=== PATIENT | female | born 2000 | race Caucasian/White ===

== ENCOUNTER 2024-02-05 16:39 | Inpatient (IN) ==
[2024-02-06] MEDS ORDERED: CALCIUM CARBONATE 500 MG CHEWABLE TAB PO PRN (16:54)
[2024-02-06] MEDS ORDERED: ACETAMINOPHEN 325 MG TAB PO PRN (16:54)
[2024-02-06] MEDS ORDERED: OXYTOCIN 30 UNITS/NSS 30 UNITS/500 ML BAG IV PRN (16:54)
[2024-02-06] MEDS ORDERED: LIDOCAINE 1% LOCAL 20 ML VIAL INFIL PRN (16:54)
[2024-02-06 17:32] LABS: Hematocrit (blood only) 38.3 % (37.0-47.0); Hemoglobin 12.5 g/dl (12.0-16.0); Mean Corpuscular Hemoglobin 26.7 pg (25.0-34.0); Mean Corpuscular Hgb Conc 32.6 g/dL (32.0-36.0); Mean Corpuscular Volume 81.7 fL (80.0-100.0); Mean Platelet Volume 11.5 fL (9.4-12.4); Platelet Count 175 K/uL (130-400); RDW Coefficient of Variation 14.7 % (11.5-14.5); RDW Standard Deviation 43.6 fL (36.4-46.3); Red Blood Count 4.69 M/uL (4.20-5.40); White Blood Count 10.34 K/ul (4.8-10.8)
[2024-02-06] MEDS: LACTATED RINGER'S 1,000 ML IV PRN (17:54)
--- NOTE | 2024-02-06 18:12 | History & Physical Report ---
Date of Service February 06, 2024 Assessment & Plan (1) Supervision of normal intrauterine in primigravida: Plan: 23 yo G1 at 40 6/7 wga presents for IOL VSS Fetus cat 1 Labor - 35cc fox placed, pt tolerated well. Will start pit GBS neg epidural prn Admission and Anticipated Discharge Date Admission Date: February 06, 2024 History of Present Illness Primary Care Provider: NO PCP 23 yo G1 at 40 6/7 wga presents for iol. 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 10/2023 neg cyto denies hx stis Allergies Allergy/AdvReac Type Severity Reaction Status Date / Time No Known Allergies Allergy Verified 02/04/24 11:55 Home Medications Medication Instructions Recorded Confirmed Type vit 168-iron 27 mg-folic 27 cap PO DAILY 09/26/23 02/06/24 History acid 800 mcg-omega3 235 mg capsule (One-A-Day -1) Patient History Medical History (Updated 02/06/24 @ 17:24 by Paola Olson, RN) No known health problems Surgical History (Updated 02/06/24 @ 17:24 by Paola Olson, RN) No history of previous surgery Social History (Updated 02/06/24 @ 17:24 by Paola Olson, RN) Smoking Status: Never smoker Do You Dip or Chew Tobacco: No; Hx Alcohol Use: No Hx Substance Use: No Preferred Language: Armenian Communication Ability: Effective 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 digital project manager at [employer] Other Information That Helps Us Care for You: No Feels Safe at Home: Yes Safety Concerns: Feels Safe At This Time Physical Exam Genitourinary: Manual OB Exam: + cervical dilation 1 cm, + cervical effacement 70% and + station -2 OB Exam Monitor Tracing: + external FHT monitor used, + external uterine monitor used and + category I Results & Data Vital Signs (Past 12 Hours) Vital Signs Temp Pulse Resp BP 02/06/24 17:25 98.2 F 18 02/06/24 17:12 81 124/75 Laboratory Results OB Labs: Blood Type A Positive 11/01/23 Antibody Screen NEGATIVE 11/01/23 Hemoglobin 11.6 g/dl (12.0-16.0) L 11/01/23 Hematocrit 36.2 % (37.0-47.0) L 11/01/23 Mean Corpuscular Volume 86.2 fL (80.0-100.0) 11/01/23 Platelet Count 297 K/uL (130-400) 11/01/23 Rubella IgG Antibody Immune (Immune) 11/01/23 Rapid Plasma Reagin Nonreactive (Nonreactive) 11/01/23 Hepatitis B Surface Antigen. NON-REACTIVE (NON-REACTIVE) 11/01/23 Hepatitis C Antibody (EIA) NON-REACTIVE (NON-REACTIVE) 11/01/23 HIV (1&2) Ag and Ab Confirmation NON-REACTIVE (NON-REACTIVE) 11/01/23 Glucose 1 Hour 50 gm Load 126 mg/dl (70-130) 11/04/23 OB Optional Labs: Chlamydia trachomatis RNA Not Detected (NotDetected) 10/04/23 Neisseria gonorrhoeae RNA Not Detected (NotDetected) 10/04/23 Coding Level of Care Code None Diagnoses Supervision of normal intrauterine in primigravida Z34.00
[2024-02-06] MEDS: OXYTOCIN 30 UNITS/NSS 30 UNITS/500 ML BAG IV PRN (19:14)
--- NOTE | 2024-02-07 02:14 | Labor Progress Brief Note ---
Date of Service February 07, 2024 Subjective ok for check Assessment & Plan (1) Supervision of normal intrauterine in primigravida: Plan: 23 yo G1 at 40 6/7 wga presents for IOL VSS Fetus cat 1 Labor - good progress, now s/p arom. Continue induction GBS neg epidural prn Admission and Anticipated Discharge Date Admission Date: February 06, 2024 Physical Exam Genitourinary: Manual OB Exam: + cervical dilation 4 cm, + cervical effacement 70%, + station -2 and + amniotic fluid (arom clear) OB Exam Monitor Tracing: + external FHT monitor used, + external uterine monitor used (q3) and + category I (145/mod/+accel/-decel) Results & Data Vital Signs (Past 12 Hours) Vital Signs Temp Pulse Resp BP 02/07/24 02:00 80 132/60 02/07/24 01:02 98 H 131/71 02/07/24 00:06 18 02/07/24 00:06 98.2 F 18 02/07/24 00:00 80 109/56 L 02/06/24 23:01 80 02/06/24 23:01 125/67 02/06/24 22:49 18 02/06/24 22:49 98.8 F 18 02/06/24 22:00 81 02/06/24 22:00 124/70 02/06/24 21:00 89 02/06/24 21:00 131/69 02/06/24 20:00 18 02/06/24 20:00 18 02/06/24 20:00 96 H 02/06/24 20:00 130/76 02/06/24 19:03 86 02/06/24 19:03 129/74 02/06/24 19:01 98.2 F 18 02/06/24 19:00 18 02/06/24 19:00 18 02/06/24 18:30 20 02/06/24 18:30 20 02/06/24 18:00 20 02/06/24 18:00 20 02/06/24 17:25 98.2 F 18 02/06/24 17:12 81 124/75 Coding Level of Care Code None Diagnoses Supervision of normal intrauterine in primigravida Z34.00
--- NOTE | 2024-02-07 07:31 | Labor Progress Brief Note ---
Date of Service February 07, 2024 Subjective ok for check Assessment & Plan (1) Supervision of normal intrauterine in primigravida: Plan: 23 yo G1 at 40 wga presents for IOL VSS Fetus cat 1 Labor - progress noted, will increae pit max to 24 GBS neg epidural prn Admission and Anticipated Discharge Date Admission Date: February 06, 2024 Physical Exam Genitourinary: Manual OB Exam: + cervical dilation 5 cm, + cervical effacement 70% and + station -2 OB Exam Monitor Tracing: + external FHT monitor used, + external uterine monitor used (q3) and + category I (140/mod/+accel/-decel) Results & Data Vital Signs (Past 12 Hours) Vital Signs Temp Pulse Resp BP 02/07/24 07:03 83 122/67 02/07/24 06:01 73 115/67 02/07/24 06:00 18 02/07/24 06:00 98.6 F 18 02/07/24 05:01 88 119/67 02/07/24 04:08 18 02/07/24 04:08 98.2 F 18 02/07/24 04:01 77 130/80 02/07/24 03:01 85 118/59 L 02/07/24 02:11 16 02/07/24 02:11 98.1 F 16 02/07/24 02:00 80 132/60 02/07/24 01:02 98 H 131/71 02/07/24 00:06 18 02/07/24 00:06 98.2 F 18 02/07/24 00:00 80 109/56 L 02/06/24 23:01 80 02/06/24 23:01 125/67 02/06/24 22:49 18 02/06/24 22:49 98.8 F 18 02/06/24 22:00 81 02/06/24 22:00 124/70 02/06/24 21:00 89 02/06/24 21:00 131/69 02/06/24 20:00 18 02/06/24 20:00 18 02/06/24 20:00 96 H 02/06/24 20:00 130/76 Coding Level of Care Code None Diagnoses Supervision of normal intrauterine in primigravida Z34.00
[2024-02-07] MEDS: fentANYL 2 MCG/ML BUPIVacaine 0.125%-NSS 100ML BAG ONE (08:30)
[2024-02-07] MEDS: BUPIVACAINE 0.25% PF 30 ML VIAL ONE (08:30)
[2024-02-07] MEDS: LIDOCAINE 2%/EPINEPHRINE 1:200,000 20 ML PF ONE (08:33)
--- NOTE | 2024-02-07 08:44 | Anesthesiology Consultation ---
Date of Service February 07, 2024 Assessment & Plan Chart Review Chart Review: Acceptable Risk for Labor Epidural Consults Requested none History Height/Weight Height: 5 ft 1 in Weight: 76.204 kg Allergies Allergy/AdvReac Type Severity Reaction Status Date / Time No Known Allergies Allergy Verified 02/04/24 11:55 Medications Home Medications Medication Instructions Recorded Confirmed Last Taken vit 168-iron 27 mg-folic 27 cap PO DAILY 09/26/23 02/06/24 02/05/24 acid 800 mcg-omega3 235 mg capsule (One-A-Day -1) Active Medications Generic Name Dose Route Start Last Admin Trade Name Freq PRN Reason Stop Dose Admin Oxytocin 30 units in 500 mls @ 18 mls/hr 02/06/24 16:54 02/07/24 04:00 Pitocin 30 Units/Nss IV 02/08/24 16:53 1.08 units/hr .Q24H PRN 18 mls/hr Labor Induction/Augmentation Titration Protocol 1.08 UNITS/HR Lactated Ringer's 1,000 mls @ 125 mls/hr 02/06/24 16:54 02/07/24 08:04 Lr IV 02/08/24 16:53 125 mls/hr .Q8H PRN Administration L&D Protocol Protocol Past Medical History Medical History (Updated 02/06/24 @ 17:24 by Paola Olson RN) No known health problems Past Surgical History Surgical History (Updated 02/06/24 @ 17:24 by Paola Olson RN) No history of previous surgery Social History Smoking Status: Never smoker Do You Dip or Chew Tobacco: No Hx Alcohol Use: No Hx Substance Use: No Physical Exam Vital Signs Last Vital Signs Temp 36.9 C 02/07/24 07:30 Pulse 97 H 02/07/24 08:42 Resp 20 02/07/24 07:30 BP 115/60 02/07/24 08:40 Pulse Ox 96 02/07/24 08:42 Testing Laboratory Results 02/06/24 17:03
[2024-02-07] MEDS ORDERED: NALOXONE HCL 1 MG in SODIUM CHLORIDE 0.9% 1,000 ML IV PRN (08:46)
[2024-02-07] MEDS ORDERED: ROPIVACAINE 0.5% PF 5 MG/ML 20 ML VIAL EPI PRN (08:46)
[2024-02-07] MEDS ORDERED: NALOXONE HCL 0.4 MG/1 ML VIAL/CARP IV PRN (08:46)
[2024-02-07] MEDS ORDERED: ePHEDrine sulfate 50 MG/ML AMP IV PRN (08:46)
[2024-02-07] MEDS ORDERED: fentaNYL citrate PF 100 MCG/2 ML VIAL EPI PRN (08:46)
[2024-02-07] MEDS ORDERED: SODIUM CHLORIDE 0.9% PF INJ 10 ML VIAL EPI PRN (08:46)
[2024-02-07] MEDS ORDERED: LIDOCAINE 2% MPF LOCAL 5 ML VIAL EPI PRN (08:46)
[2024-02-07] MEDS ORDERED: NALBUPHINE HCL 5 MG in SYRINGE 0 ML IV PRN (08:46)
[2024-02-07] MEDS ORDERED: BUPIVACAINE 0.25% PF 30 ML VIAL EPI PRN (08:46)
[2024-02-07] MEDS: SODIUM CHLORIDE 0.9% PF INJ 10 ML VIAL ONE (08:59)
[2024-02-07] MEDS: fentaNYL citrate PF 100 MCG/2 ML VIAL ONE (08:59)
[2024-02-07] MEDS: SODIUM CHLORIDE 0.9% PF INJ 10 ML VIAL EPI STA (10:24)
[2024-02-07] MEDS: LIDOCAINE 2%/EPINEPHRINE 1:200,000 20 ML PF EPI STA (10:24)
[2024-02-07] MEDS: fentaNYL citrate PF 100 MCG/2 ML VIAL EPI STA (10:24)
[2024-02-07] MEDS: BUPIVACAINE 0.25% PF 30 ML VIAL EPI STA (10:24)
[2024-02-07] MEDS: diphenhydrAMINE 50 MG/ML VIAL IV PRN (15:43)
[2024-02-07] MEDS: fentANYL 2 MCG/ML BUPIVacaine 0.125%-NSS 100ML BAG EPI PRN (15:49)
[2024-02-07] MEDS: ePHEDrine sulfate 50 MG/ML AMP ONE (20:19)
--- NOTE | 2024-02-08 03:46 | Labor Progress Brief Note ---
Date of Service February 08, 2024 Subjective Reason For Note: Change In Status patient has been pushing effectively for 3 hours but no longer making significant progress. after patient's consent and after straight cath for about 50cc of urine- vaccuum with Kiwi device applied to vertex but after 3 pop-offs through 3 contractions there is no descent of caput. FHT's have been reassuring throught out the labor process. because of arrest of descent and failed vaccuum attempt, we will proceed with primary LTCS after discussing with the patient and partner. they are agreeable to proceeding with LTCS. all questions are answered to their satisfaction. Assessment & Plan Admission and Anticipated Discharge Date Admission Date: February 06, 2024 Results & Data Vital Signs (Past 12 Hours) Vital Signs Temp Pulse Resp BP Pulse Ox 02/08/24 03:37 102 H 97 02/08/24 03:32 92 H 96 02/08/24 03:27 106 H 95 02/08/24 03:22 96 H 97 02/08/24 03:17 103 H 96 02/08/24 03:12 99 H 97 02/08/24 03:07 116 H 96 02/08/24 03:02 91 H 95 02/08/24 02:57 107 H 96 02/08/24 02:52 99 H 95 02/08/24 02:47 93 H 95 02/08/24 02:42 97 H 96 02/08/24 02:37 89 96 02/08/24 02:32 94 H 95 02/08/24 02:27 97 H 95 02/08/24 02:22 109 H 96 02/08/24 02:17 90 95 02/08/24 02:12 98 H 97 02/08/24 02:07 82 97 02/08/24 02:04 89 124/60 02/08/24 02:02 105 H 96 02/08/24 01:57 96 H 97 02/08/24 01:52 97 H 96 02/08/24 01:47 91 H 97 02/08/24 01:42 90 97 02/08/24 01:37 105 H 97 02/08/24 01:36 18 02/08/24 01:36 98.8 F 18 02/08/24 01:32 102 H 97 02/08/24 01:27 96 H 97 02/08/24 01:22 100 H 97 02/08/24 01:17 101 H 97 02/08/24 01:12 95 H 97 02/08/24 01:07 95 H 97 02/08/24 01:02 114 H 98 02/08/24 00:57 100 H 97 02/08/24 00:52 107 H 97 02/08/24 00:47 110 H 96 02/08/24 00:42 111 H 96 02/08/24 00:37 100 H 96 02/08/24 00:32 100 H 94 02/08/24 00:27 102 H 97 02/08/24 00:22 96 H 95 02/08/24 00:17 96 H 98 02/08/24 00:12 93 H 100 02/08/24 00:07 97 H 98 02/08/24 00:02 106 H 97 02/07/24 23:57 99 H 98 02/07/24 23:52 98 H 99 02/07/24 23:47 107 H 99 02/07/24 23:42 110 H 100 02/07/24 23:39 109 H 115/57 L 02/07/24 23:38 16 02/07/24 23:38 99.3 F 16 02/07/24 23:37 114 H 99 02/07/24 23:31 119 H 98 02/07/24 23:26 119 H 100 02/07/24 23:21 112 H 99 02/07/24 23:16 117 H 100 02/07/24 23:11 116 H 98 02/07/24 23:06 109 H 99 02/07/24 23:01 116 H 99 02/07/24 22:38 120 H 100 02/07/24 22:33 105 H 100 02/07/24 22:28 118 H 99 02/07/24 22:27 146 H 135/64 02/07/24 22:23 114 H 100 02/07/24 22:18 113 H 100 02/07/24 22:13 108 H 100 02/07/24 22:08 127 H 100 02/07/24 22:06 112 H 80 L 02/07/24 22:03 109 H 99 02/07/24 22:01 107 H 84 L 02/07/24 21:58 100 02/07/24 21:58 115 H 05/03/24 21:58 109 H 121/79 05/03/24 21:53 110 H 100 02/07/24 21:41 103 H 122/73 02/07/24 21:28 118 H 123/77 02/07/24 21:12 118 H 131/60 02/07/24 20:57 114 H 156/72 H 02/07/24 20:41 115 H 121/65 02/07/24 20:27 116 H 120/65 02/07/24 20:11 103 H 120/62 02/07/24 19:56 100 H 111/58 L 02/07/24 19:52 104 H 100 02/07/24 19:47 104 H 100 02/07/24 19:42 108 H 100 02/07/24 19:41 104 H 110/59 L 02/07/24 19:37 97 H 100 02/07/24 19:32 107 H 100 02/07/24 19:27 101 H 100 02/07/24 19:26 96 H 114/58 L 02/07/24 19:22 104 H 100 02/07/24 19:17 109 H 99 02/07/24 19:12 103 H 99 02/07/24 19:11 105 H 108/54 L 02/07/24 19:07 105 H 99 02/07/24 19:05 16 02/07/24 19:05 99.0 F 16 02/07/24 19:02 114 H 99 02/07/24 19:00 18 02/07/24 19:00 18 02/07/24 18:58 103 H 105/51 L 02/07/24 18:57 103 H 98 02/07/24 18:52 103 H 99 02/07/24 18:47 104 H 99 02/07/24 18:43 103 H 106/54 L 02/07/24 18:42 103 H 99 02/07/24 18:37 97 H 97 02/07/24 18:32 97 H 98 02/07/24 18:30 20 02/07/24 18:30 20 02/07/24 18:28 97 H 101/52 L 02/07/24 18:27 98 H 98 02/07/24 18:22 91 H 99 02/07/24 18:17 99 H 98 02/07/24 18:13 100 H 108/57 L 02/07/24 18:12 99 H 100 02/07/24 18:07 105 H 100 02/07/24 18:02 109 H 99 02/07/24 18:00 20 02/07/24 18:00 20 02/07/24 17:57 109 H 100 02/07/24 17:56 104 H 116/56 L 02/07/24 17:52 109 H 100 02/07/24 17:47 116 H 100 02/07/24 17:43 105 H 107/67 02/07/24 17:42 104 H 100 02/07/24 17:37 94 H 100 02/07/24 17:32 111 H 100 02/07/24 17:30 20 02/07/24 17:30 20 02/07/24 17:28 108 H 106/62 02/07/24 17:27 110 H 100 02/07/24 17:22 106 H 100 02/07/24 17:17 109 H 96 02/07/24 17:12 111 H 98 02/07/24 17:11 116 H 102/51 L 02/07/24 17:07 100 H 98 02/07/24 17:02 100 H 95 02/07/24 17:00 20 02/07/24 17:00 98.2 F 20 02/07/24 16:57 100 H 94 02/07/24 16:56 94 H 108/58 L 02/07/24 16:52 99 H 95 02/07/24 16:47 98 H 95 02/07/24 16:42 101 H 95 02/07/24 16:41 93 H 106/55 L 02/07/24 16:37 99 H 94 02/07/24 16:32 97 H 94 02/07/24 16:30 18 02/07/24 16:30 18 02/07/24 16:27 100 H 95 02/07/24 16:26 103 H 103/59 L 02/07/24 16:22 93 H 95 02/07/24 16:17 97 H 96 02/07/24 16:12 93 H 96 02/07/24 16:11 92 H 102/56 L 02/07/24 16:07 87 96 02/07/24 16:02 92 H 97 02/07/24 16:00 20 02/07/24 16:00 20 02/07/24 15:57 90 98 02/07/24 15:56 91 H 107/61 02/07/24 15:52 86 98 02/07/24 15:47 100 H 100 Coding Level of Care Code 30614 SUB INP/OBS CARE
[2024-02-08] MEDS ORDERED: SODIUM CHLORIDE 0.9% 250 ML IV PRN (03:47)
[2024-02-08] MEDS ORDERED: MoRPHine SULFATE PF 1 MG/ML 10 ML AMP/VIAL ONE (03:56)
[2024-02-08] MEDS ORDERED: ceFAZolin 2000MG 2,000 MG/15 ML SYR IV STA (04:20)
[2024-02-08] MEDS: CITRIC ACID/SODIUM CITRATE 15 ML UDC PO STA (04:25)
[2024-02-08] MEDS ORDERED: LIDOCAINE 2%/EPINEPHRINE 1:200,000 20 ML PF ONE (05:15)
[2024-02-08] MEDS ORDERED: PHENYLEPHRINE 100MCG/ML 10ML SYR IV ONE (05:15)
[2024-02-08] MEDS ORDERED: OXYTOCIN 10 UNITS/ML VIAL ONE ×4 (05:16)
[2024-02-08] MEDS ORDERED: NALOXONE HCL 0.08 MG in SYRINGE 1.8 ML IV PRN (05:33)
[2024-02-08] MEDS ORDERED: MoRPHine SULFATE PF 1 MG/ML 10 ML AMP/VIAL INT SPINAL ONE (05:33)
[2024-02-08] MEDS ORDERED: ONDANSETRON INJ 2 MG/ML 2 ML VIAL IV PRN ×2 (05:33→06:31)
[2024-02-08] MEDS ORDERED: ePHEDrine sulfate 50 MG/ML AMP IV PRN ×2 (05:33→07:21)
[2024-02-08] MEDS ORDERED: MEPERIDINE HCL 25 MG/ML CARP/VIAL IV PRN (05:33)
[2024-02-08] MEDS ORDERED: HYDROmorphone INJ 0.5 MG/0.5 ML SYR IV PRN (05:33)
[2024-02-08] MEDS ORDERED: LACTATED RINGER'S 500 ML IV PRN (05:33)
[2024-02-08] MEDS ORDERED: NALBUPHINE HCL 5 MG in SYRINGE 0 ML IV PRN ×2 (05:33→07:21)
[2024-02-08] MEDS ORDERED: NALOXONE HCL 1 MG in SODIUM CHLORIDE 0.9% 1,000 ML IV PRN ×2 (05:33→07:21)
[2024-02-08] MEDS ORDERED: MoRPHine SULFATE 2 MG/ML CARP IV PRN (05:33)
[2024-02-08] MEDS ORDERED: ACETAMINOPHEN 1,000 MG/100 ML VIAL IV PRN (05:33)
[2024-02-08] MEDS ORDERED: diphenhydrAMINE 50 MG/ML VIAL IV PRN ×3 (05:33→23:33)
[2024-02-08] MEDS ORDERED: NALOXONE HCL 0.4 MG/1 ML VIAL/CARP IV PRN ×2 (05:33→07:21)
[2024-02-08] MEDS ORDERED: PROMETHAZINE HCL 6.25 MG in SODIUM CHLORIDE 0.9% 50 ML IV PRN (05:33)
[2024-02-08] MEDS ORDERED: SODIUM CHLORIDE 0.9% 1,000 ML IV SCH (05:45)
[2024-02-08] MEDS ORDERED: DC INTRASPINAL MORPHINE SCH (05:45)
[2024-02-08] MEDS ORDERED: ONDANSETRON INJ 2 MG/ML 2 ML VIAL ONE (05:45)
[2024-02-08] MEDS ORDERED: NO NARCOTICS OR SEDATIVES SCH (05:45)
--- NOTE | 2024-02-08 06:17 | Post Operative Brief Note ---
PG Immediate Post Op with CF Date of Surgery February 08, 2024 Pre & Post Diagnosis Operation Date: 02/08/24 04:00 Pre-Op Diagnosis: 1. Post dates induction 2. Failure to descend 3. Failed vacuum x3 Post-Op Diagnosis: Same as preop I identified the patient and participated in the time-out.: Yes Procedure Operation Date: 02/08/24 04:00 Actual Procedures p low transverse section with cephalad T-extension of uterine incision in LD - Mayuri Schulte MD, FACOG Surgeon Mayuri Schulte MD, FACOG Administration Manager Kaylynn Olguin RN Estimated Blood Loss [phone] Findings Consistent with Post-Op Diagnosis gravid uterus - normal tubes and ovaries in ROP presentation restituted to direct OP Specimens Specimen Description: 1. Placenta (hold) 2. Cord Blood Drains [place]bron Catheter (Anesthesia to monitor during proceedure) Anesthesia Type Labor Epidural Complications none Disposition Accompanied Patient To Recovery: Yes Disposition: L&D
[2024-02-08] MEDS ORDERED: HYDROCORTISONE ACETATE 25 MG SUPP PR PRN (06:31)
[2024-02-08] MEDS ORDERED: BENZOCAINE 20% SPRY 85 APPLN/85 GM CAN EXT PRN (06:31)
[2024-02-08] MEDS ORDERED: MAGNESIUM HYDROXIDE SUSP 30 ML UDC PO PRN (06:31)
[2024-02-08] MEDS ORDERED: SENNA 8.6 MG TAB PO PRN (06:31)
[2024-02-08] MEDS ORDERED: IBUPROFEN 600 MG TAB PO PRN (06:31)
[2024-02-08] MEDS ORDERED: LACTATED RINGER'S 1,000 ML IV SCH (06:45)
[2024-02-08] MEDS: OXYTOCIN 20 UNITS/LR 1,002 ML IV SCH (07:08)
--- NOTE | 2024-02-08 07:10 | Anesthesia Procedure Note ---
Date of Service February 08, 2024 Anesthesia Post Epidural Note Vital Signs Vital Signs: Temp Pulse Resp BP Pulse Ox O2 Del Method 37.3 C 97 H 16 117/55 L 100 Room Air 02/08/24 06:24 02/08/24 07:08 02/08/24 06:54 02/08/24 07:03 02/08/24 07:08 02/08/24 06:54 Pain Intensity Lower Abdomen: Pain Intensity: 4 Notes Mental Status: alert / awake / arousable Nausea / Vomiting: adequately controlled Pain: adequately controlled Airway Patency, RR, SpO2: stable & adequate BP & HR: stable & adequate Hydration State: stable & adequate Neuraxial Anesthesia: was administered and sensory block is resolving Anesthetic Complications: no major complications apparent and Pt Satisfied with anesthetic care Epidural: Removed without complications and With tip intact
--- NOTE | 2024-02-08 07:10 | Anesthesiology Progress Note ---
Date of Service February 08, 2024 Anesthesia Post Procedure Vital Signs Vital Signs: Temp Pulse Resp BP Pulse Ox O2 Del Method 02/08/24 07:08 97 H 100 02/08/24 07:03 98 H 117/55 L 98 02/08/24 06:58 102 H 98 02/08/24 06:54 16 Room Air 02/08/24 06:53 106 H 117/57 L 99 02/08/24 06:48 101 H 97 02/08/24 06:44 16 02/08/24 06:43 107 H 109/57 L 98 02/08/24 06:38 107 H 100 02/08/24 06:34 16 Room Air 02/08/24 06:34 104 H 124/58 L 02/08/24 06:33 105 H 99 02/08/24 06:28 99 H 99 02/08/24 06:24 37.3 C 16 02/08/24 06:24 98 H 119/71 02/08/24 06:23 96 H 100 02/08/24 04:37 135 H 100 02/08/24 04:32 139 H 99 02/08/24 04:28 16 02/08/24 04:28 36.9 C 16 02/08/24 04:27 126 H 99 02/08/24 04:22 103 H 97 02/08/24 04:17 107 H 97 02/08/24 04:14 109 H 108/59 L 02/08/24 04:12 105 H 97 02/08/24 04:07 104 H 99 02/08/24 04:02 107 H 112/55 L 98 02/08/24 03:59 102 H 110/55 L 02/08/24 03:57 102 H 96 02/08/24 03:52 99 H 97 02/08/24 03:47 103 H 96 02/08/24 03:42 95 H 96 02/08/24 03:37 102 H 97 02/08/24 03:32 92 H 96 02/08/24 03:27 106 H 95 02/08/24 03:22 96 H 97 02/08/24 03:17 103 H 96 02/08/24 03:12 99 H 97 02/08/24 03:07 116 H 96 02/08/24 03:02 91 H 95 02/08/24 02:57 107 H 96 02/08/24 02:52 99 H 95 02/08/24 02:47 93 H 95 02/08/24 02:42 97 H 96 02/08/24 02:37 89 96 02/08/24 02:32 94 H 95 02/08/24 02:27 97 H 95 02/08/24 02:22 109 H 96 02/08/24 02:17 90 95 02/08/24 02:12 98 H 97 02/08/24 02:07 82 97 02/08/24 02:04 89 124/60 02/08/24 02:02 105 H 96 02/08/24 01:57 96 H 97 02/08/24 01:52 97 H 96 02/08/24 01:47 91 H 97 02/08/24 01:42 90 97 02/08/24 01:37 105 H 97 02/08/24 01:36 18 02/08/24 01:36 37.1 C 18 02/08/24 01:32 102 H 97 02/08/24 01:27 96 H 97 02/08/24 01:22 100 H 97 02/08/24 01:17 101 H 97 02/08/24 01:12 95 H 97 02/08/24 01:07 95 H 97 02/08/24 01:02 114 H 98 02/08/24 00:57 100 H 97 02/08/24 00:52 107 H 97 02/08/24 00:47 110 H 96 02/08/24 00:42 111 H 96 02/08/24 00:37 100 H 96 02/08/24 00:32 100 H 94 02/08/24 00:27 102 H 97 02/08/24 00:22 96 H 95 02/08/24 00:17 96 H 98 02/08/24 00:12 93 H 100 02/08/24 00:07 97 H 98 02/08/24 00:02 106 H 97 02/07/24 23:57 99 H 98 02/07/24 23:52 98 H 99 02/07/24 23:47 107 H 99 02/07/24 23:42 110 H 100 02/07/24 23:39 109 H 115/57 L 02/07/24 23:38 16 02/07/24 23:38 37.4 C 16 02/07/24 23:37 114 H 99 02/07/24 23:31 119 H 98 02/07/24 23:26 119 H 100 02/07/24 23:21 112 H 99 02/07/24 23:16 117 H 100 02/07/24 23:11 116 H 98 02/07/24 23:06 109 H 99 02/07/24 23:01 116 H 99 02/07/24 22:38 120 H 100 02/07/24 22:33 105 H 100 02/07/24 22:28 118 H 99 02/07/24 22:27 146 H 135/64 02/07/24 22:23 114 H 100 02/07/24 22:18 113 H 100 02/07/24 22:13 108 H 100 02/07/24 22:08 127 H 100 02/07/24 22:06 112 H 80 L 02/07/24 22:03 109 H 99 02/07/24 22:01 107 H 84 L 02/07/24 21:58 100 02/07/24 21:58 115 H 02/07/24 21:58 109 H 121/79 02/07/24 21:53 110 H 100 02/07/24 21:41 103 H 122/73 02/07/24 21:28 118 H 123/77 02/07/24 21:12 118 H 131/60 02/07/24 20:57 114 H 156/72 H 02/07/24 20:41 115 H 121/65 02/07/24 20:27 116 H 120/65 02/07/24 20:11 103 H 120/62 02/07/24 19:56 100 H 111/58 L 02/07/24 19:52 104 H 100 02/07/24 19:47 104 H 100 02/07/24 19:42 108 H 100 02/07/24 19:41 104 H 110/59 L 02/07/24 19:37 97 H 100 02/07/24 19:32 107 H 100 02/07/24 19:27 101 H 100 02/07/24 19:26 96 H 114/58 L 02/07/24 19:22 104 H 100 02/07/24 19:17 109 H 99 02/07/24 19:12 103 H 99 02/07/24 19:11 105 H 108/54 L 02/07/24 19:07 105 H 99 02/07/24 19:05 16 02/07/24 19:05 37.2 C 16 02/07/24 19:02 114 H 99 02/07/24 19:00 18 02/07/24 19:00 18 02/07/24 18:58 103 H 105/51 L 02/07/24 18:57 103 H 98 02/07/24 18:52 103 H 99 02/07/24 18:47 104 H 99 02/07/24 18:43 103 H 106/54 L 02/07/24 18:42 103 H 99 02/07/24 18:37 97 H 97 02/07/24 18:32 97 H 98 02/07/24 18:30 20 02/07/24 18:30 20 02/07/24 18:28 97 H 101/52 L 02/07/24 18:27 98 H 98 02/07/24 18:22 91 H 99 02/07/24 18:17 99 H 98 02/07/24 18:13 100 H 108/57 L 02/07/24 18:12 99 H 100 02/07/24 18:07 105 H 100 02/07/24 18:02 109 H 99 02/07/24 18:00 20 02/07/24 18:00 20 02/07/24 17:57 109 H 100 02/07/24 17:56 104 H 116/56 L 02/07/24 17:52 109 H 100 02/07/24 17:47 116 H 100 02/07/24 17:43 105 H 107/67 02/07/24 17:42 104 H 100 02/07/24 17:37 94 H 100 02/07/24 17:32 111 H 100 02/07/24 17:30 20 02/07/24 17:30 20 02/07/24 17:28 108 H 106/62 02/07/24 17:27 110 H 100 02/07/24 17:22 106 H 100 02/07/24 17:17 109 H 96 02/07/24 17:12 111 H 98 02/07/24 17:11 116 H 102/51 L 02/07/24 17:07 100 H 98 02/07/24 17:02 100 H 95 02/07/24 17:00 20 02/07/24 17:00 36.8 C 20 02/07/24 16:57 100 H 94 02/07/24 16:56 94 H 108/58 L 02/07/24 16:52 99 H 95 02/07/24 16:47 98 H 95 02/07/24 16:42 101 H 95 02/07/24 16:41 93 H 106/55 L 02/07/24 16:37 99 H 94 02/07/24 16:32 97 H 94 02/07/24 16:30 18 02/07/24 16:30 18 02/07/24 16:27 100 H 95 02/07/24 16:26 103 H 103/59 L 02/07/24 16:22 93 H 95 02/07/24 16:17 97 H 96 02/07/24 16:12 93 H 96 02/07/24 16:11 92 H 102/56 L 02/07/24 16:07 87 96 02/07/24 16:02 92 H 97 02/07/24 16:00 20 02/07/24 16:00 20 02/07/24 15:57 90 98 02/07/24 15:56 91 H 107/61 02/07/24 15:52 86 98 02/07/24 15:47 100 H 100 02/07/24 15:42 95 H 98 02/07/24 15:41 96 H 110/66 02/07/24 15:37 109 H 98 02/07/24 15:32 104 H 100 02/07/24 15:30 20 02/07/24 15:30 20 02/07/24 15:27 99 02/07/24 15:27 98 H 02/07/24 15:27 97 H 111/62 02/07/24 15:22 92 H 99 02/07/24 15:17 106 H 96 02/07/24 15:12 95 H 99 02/07/24 15:07 88 98 02/07/24 15:02 93 H 96 02/07/24 15:00 37.2 C 02/07/24 14:58 94 H 101/54 L 02/07/24 14:57 87 97 02/07/24 14:52 92 H 98 02/07/24 14:47 96 H 97 02/07/24 14:42 99 H 98 02/07/24 14:41 97 H 94/52 L 02/07/24 14:37 96 H 97 02/07/24 14:32 95 H 97 02/07/24 14:30 20 02/07/24 14:30 20 02/07/24 14:27 101 H 105/57 L 97 02/07/24 14:22 110 H 96 02/07/24 14:17 110 H 97 02/07/24 14:12 109 H 96 02/07/24 14:11 105 H 106/57 L 02/07/24 14:07 100 H 96 02/07/24 14:02 100 H 97 02/07/24 13:57 99 H 100/57 L 95 02/07/24 13:52 94 H 95 02/07/24 13:47 92 H 95 02/07/24 13:42 90 95 02/07/24 13:41 93 H 101/59 L 02/07/24 13:37 91 H 95 02/07/24 13:32 98 H 96 02/07/24 13:30 18 02/07/24 13:30 37.0 C 18 02/07/24 13:27 95 H 95 02/07/24 13:26 95 H 106/57 L 02/07/24 13:22 88 96 02/07/24 13:17 91 H 96 02/07/24 13:12 88 96 02/07/24 13:11 102 H 102/63 02/07/24 13:07 96 H 96 02/07/24 13:02 91 H 97 02/07/24 13:00 18 02/07/24 13:00 18 02/07/24 12:57 84 101/53 L 97 02/07/24 12:52 82 97 02/07/24 12:47 92 H 97 02/07/24 12:42 98 02/07/24 12:42 84 02/07/24 12:42 87 97/56 L 02/07/24 12:37 96 H 98 02/07/24 12:32 87 98 02/07/24 12:30 16 02/07/24 12:30 16 02/07/24 12:28 83 90/54 L 02/07/24 12:27 82 98 02/07/24 12:22 107 H 98 02/07/24 12:17 101 H 99 02/07/24 12:13 89 99/58 L 02/07/24 12:12 86 98 02/07/24 12:07 86 98 02/07/24 12:02 83 97 02/07/24 12:00 16 02/07/24 12:00 16 02/07/24 11:57 98 02/07/24 11:57 86 02/07/24 11:57 83 97/56 L 02/07/24 11:52 84 98 02/07/24 11:47 83 98 02/07/24 11:42 88 100/53 L 99 02/07/24 11:37 87 98 02/07/24 11:32 100 H 97 02/07/24 11:30 36.7 C 02/07/24 11:30 36.7 C 02/07/24 11:29 20 02/07/24 11:29 20 02/07/24 11:27 90 97 02/07/24 11:22 83 98 02/07/24 11:17 80 98 02/07/24 11:12 83 97 02/07/24 11:11 80 95/55 L 02/07/24 11:07 84 96 02/07/24 11:02 89 97 02/07/24 11:00 18 02/07/24 11:00 18 02/07/24 10:57 82 96 02/07/24 10:56 82 96/52 L 02/07/24 10:52 84 97 02/07/24 10:47 85 96 02/07/24 10:43 81 94/51 L 02/07/24 10:42 81 97 02/07/24 10:37 88 96 02/07/24 10:32 98 H 96 02/07/24 10:30 18 02/07/24 10:30 18 02/07/24 10:28 91 H 105/56 L 02/07/24 10:27 89 94 02/07/24 10:22 94 H 94 02/07/24 10:17 82 94 02/07/24 10:13 88 109/54 L 02/07/24 10:12 86 94 02/07/24 10:07 87 94 02/07/24 10:02 86 94 02/07/24 10:00 20 02/07/24 10:00 20 02/07/24 09:57 81 94 02/07/24 09:56 90 109/57 L 02/07/24 09:52 92 H 95 02/07/24 09:47 82 95 02/07/24 09:42 87 118/63 95 02/07/24 09:37 82 96 02/07/24 09:32 85 96 02/07/24 09:30 18 02/07/24 09:30 18 02/07/24 09:27 96 02/07/24 09:27 89 02/07/24 09:27 83 103/61 02/07/24 09:24 84 95/51 L 02/07/24 09:22 91 H 95 02/07/24 09:20 94 H 89/51 L 02/07/24 09:17 92 H 96 02/07/24 09:16 86 98/54 L 02/07/24 09:12 89 101/54 L 96 02/07/24 09:07 81 96 02/07/24 09:05 89 96/52 L 02/07/24 09:02 92 H 96 02/07/24 09:00 36.8 C 93 H 16 101/55 L 02/07/24 08:57 95 H 96 02/07/24 08:56 93 H 94/51 L 02/07/24 08:52 95 02/07/24 08:52 104 H 02/07/24 08:52 85 96/52 L 02/07/24 08:48 18 02/07/24 08:48 18 02/07/24 08:47 95 H 97 02/07/24 08:45 93 H 102/53 L 02/07/24 08:43 16 02/07/24 08:43 16 02/07/24 08:42 97 H 96 02/07/24 08:40 90 115/60 02/07/24 08:38 89 18 115/59 L 02/07/24 08:37 90 97 02/07/24 08:36 82 115/57 L 02/07/24 08:34 73 115/62 02/07/24 08:33 87 114/57 L 02/07/24 08:32 90 96 02/07/24 08:30 84 121/64 02/07/24 08:28 99 H 119/65 02/07/24 08:27 94 H 97 05/03/24 08:22 121 H 98 02/07/24 08:20 20 02/07/24 08:20 20 02/07/24 08:17 112 H 97 02/07/24 08:12 93 H 97 02/07/24 08:07 100 H 97 02/07/24 08:03 88 130/61 02/07/24 08:02 109 H 98 02/07/24 08:00 20 02/07/24 08:00 20 02/07/24 07:30 20 02/07/24 07:30 36.9 C 20 Pain Intensity Lower Abdomen: Pain Intensity: 4 Transfer of Care Handoff Completed per policy Notes Mental Status: alert / awake / arousable and participated in evaluation Nausea / Vomiting: adequately controlled Pain: adequately controlled Airway Patency, RR, SpO2: stable & adequate BP & HR: stable & adequate Hydration State: stable & adequate Neuraxial Anesthesia: was administered and sensory block is resolving Anesthetic Complications: no major complications apparent and Pt Satisfied with anesthetic care
[2024-02-08] MEDS ORDERED: SODIUM CHLORIDE 0.9% PF INJ 10 ML VIAL EPI STA (07:21)
[2024-02-08] MEDS ORDERED: BUPIVACAINE 0.25% PF 30 ML VIAL EPI STA (07:21)
[2024-02-08] MEDS ORDERED: fentANYL 2 MCG/ML BUPIVacaine 0.125%-NSS 100ML BAG EPI PRN (07:21)
[2024-02-08] MEDS ORDERED: BUPIVACAINE 0.25% PF 30 ML VIAL EPI PRN (07:21)
[2024-02-08] MEDS ORDERED: LIDOCAINE 2% MPF LOCAL 5 ML VIAL EPI PRN (07:21)
[2024-02-08] MEDS ORDERED: LIDOCAINE 2%/EPINEPHRINE 1:200,000 20 ML PF EPI STA (07:21)
[2024-02-08] MEDS ORDERED: fentaNYL citrate PF 100 MCG/2 ML VIAL EPI STA (07:21)
[2024-02-08] MEDS ORDERED: fentaNYL citrate PF 100 MCG/2 ML VIAL EPI PRN (07:21)
[2024-02-08] MEDS ORDERED: SODIUM CHLORIDE 0.9% PF INJ 10 ML VIAL EPI PRN (07:21)
[2024-02-08] MEDS ORDERED: ROPIVACAINE 0.5% PF 5 MG/ML 20 ML VIAL EPI PRN (07:21)
[2024-02-08] MEDS: KETOROLAC 30 MG/ML VIAL IV PRN ×2 (07:24→23:40)
--- NOTE | 2024-02-08 08:23 | Operative Report ---
PG Post Operative Report Pre & Post Diagnosis Operation Date: 02/08/24 04:00 Pre-Op Diagnosis: 1. Failed post dates induction 2. Failure to decend 3. Failed vacuum x3 Post-Op Diagnosis: Same as preop I identified the patient and participated in the time-out.: Yes Procedure Operation Date: 02/08/24 04:00 Actual Procedures p Section in LD with T-Incision anteriorly for live female child at 0511 - Mayuri Schulte MD, FACOG Surgeon Mayuri Schulte MD, FACOG Oncology Social Worker Kaylynn Olguin RN Estimated Blood Loss 1,133 Findings Consistent with Post-Op Diagnosis Specimens placenta to hold Drains Lebron catheter to straight drainage Anesthesia Type Labor Epidural Complications none Disposition Accompanied Patient To Recovery: Yes Disposition: L&D Indications Patient is a 23-year-old 1 P0 female EDC of 01/31/2024 who presented on 02/06/2024 for induction of labor because of postterm . She had a cervical balloon and Pitocin by induction protocol begun by Dr. Curtis. She received effective epidural analgesia but moved slowly towards full dilation. It was difficult to keep a consistent contraction pattern during her labor. She eventually progressed to full dilation and pushed effectively for 2 hours. She then rested for 1 hour and pushed again for 1 hour without any further significant descent of the head. Patient was offered a trial of vacuum which she accepted. The Kiwi vacuum then had 3 pop-off's and again without any further descent of the head. Was at this point that it was recommended to move towards section. Patient and her partner agreed with this plan and all her questions were answered to their satisfaction. Description of Procedure Of the patient received effective epidural anesthesia she was prepped and draped in usual sterile fashion a low transverse skin incision was made with a scalpel and carried the fascia with the same scalpel the fascial incision was then extended with Becerra scissors. The edges of the fascia were then grasped with Dahlia clamps and the underlying rectus muscle bluntly sharply dissected off of the overlying fascia. The rectus muscles were bluntly divided in the midline and the underlying peritoneum elevated sharply. The bladder was then taken down off the anterior surface of the uterus and placed behind the bladder blade. The lower uterine segment was entered with a scalpel and the incision was extended by stretching the incision both cephalad and caudad. There is still a moderate amount of clear amniotic fluid present upon entering the uterus. With the assistance of the nurse Mary elevating the head vaginally the head was brought up into the uterine incision with much difficulty. The head was in direct OP presentation and could not effectively be brought into the incision until the inner incision was teed on the midline cephalad for a distance of 3 cm. This still did not help bring the head from the pelvis. The Victus retractor was then used. It was placed in front of the head and by elevating the retractor is able to bring the head into the uterine incision. Approximate time from skin incision to delivery of the infant was 15 minutes. The cord was clamped and cut upon delivery of the rest the with moderate fundal pressure. And handed off to Dr. Irby who was attendance as clerk. After cord blood was obtained the placenta was expressed intact with a three-vessel cord. The uterus was then exteriorized and covered with a clean lap sponge uterine cavity was then explored and was found to be free of any retained membranes or tissue. The T extension of the incision was first repaired in a running locking imbricating fashion with 0 Monocryl suture . Then the transverse uterine incision was closed in a running locking imbricating fashion in 2 layers with 0 Monocryl as well. Hemostasis noted to be excellent on both the incisions. Hematoma that had developed on the left side of the uterine wall was stable and not expanding. There was some oozing in the area of the hematoma and this was controlled with Therese powder. The area of the hematoma was then oversewn with 0 Monocryl suture. This point hemostasis was noted be excellent both in the uterine incisions and in the hematoma area. After suctioning a small amount of blood from the posterior cul-de-sac, the uterus was gently packed placed back inside the abdominal cavity. Uterine incisions and area of hematoma continue to have excellent hemostasis. The gutters were explored and found to be free of any fluid or clots. The rectus muscle were then brought together in the midline with individual stitches of 0 Monocryl. Some mild oozing in the area of the bladder reflection was also controlled with Therese prior to closing the rectus muscles. The fascia was then closed in a running fashion with 0 Vicryl. After irrigating the subcutaneous layer, the skin edges were brought back together in a subcuticular fashion with 4-0 Vicryl. Mother and were doing well after delivery. The only needed stimulation and blow-by oxygen on delivery with Apgars of 6 and 9. I attest to the content of the Intraoperative Record and any orders documented therein. Any exceptions are noted below. OB Procedure Charges 62271
[2024-02-08] MEDS: FERROUS SULFATE 325 MG TAB PO SCH (14:06)
[2024-02-08] MEDS: DOCUSATE SODIUM 100 MG CAP PO SCH (14:06)
[2024-02-08] MEDS: SIMETHICONE 80 MG CHEW PO SCH (14:06)
[2024-02-08] MEDS: PRENATAL VITAMIN 1 TAB PO SCH (14:06)
[2024-02-08] MEDS: LACTATED RINGER'S 1,000 ML IV ONE (16:38)
[2024-02-08] MEDS ORDERED: MEPERIDINE HCL 50 MG/ML CARP IV PRN (23:33)
[2024-02-08] MEDS ORDERED: diphenhydrAMINE Capsule 25 MG CAP PO PRN (23:33)
[2024-02-08] MEDS ORDERED: PROMETHAZINE HCL 25 MG in SODIUM CHLORIDE 0.9% 50 ML IV PRN (23:33)
[2024-02-08] MEDS ORDERED: oxyCODONE/ACETAMINOPHEN 5mg/325mg TAB PO PRN (23:33)
[2024-02-09 06:41] LABS: Basophils # (auto) 0.02 K/uL (0.00-0.20); Basophils % (auto) 0.1 %; Eosinophils # (auto) 0.07 K/uL (0.00-0.50); Eosinophils % (auto) 0.4 %; Hematocrit (blood only) 30.2 % (37.0-47.0); Hemoglobin 9.8 g/dl (12.0-16.0); Immature Granulocytes # (auto) 0.08 K/uL (0.01-0.20); Immature Granulocytes % (auto) 0.5 %; Lymphocytes # (auto) 0.97 K/uL (1.20-3.40); Lymphocytes % (auto) 5.9 %; Mean Corpuscular Hemoglobin 26.8 pg (25.0-34.0); Mean Corpuscular Hgb Conc 32.5 g/dL (32.0-36.0); Mean Corpuscular Volume 82.5 fL (80.0-100.0); Monocytes # (auto) 0.89 K/uL (0.11-0.59); Monocytes % (auto) 5.4 %; Neutrophils # (auto) 14.49 K/uL (1.40-6.50); Neutrophils % (auto) 87.7 %; Platelet Count 154 K/uL (130-400); RDW Coefficient of Variation 15.1 % (11.5-14.5); Red Blood Count 3.66 M/uL (4.20-5.40); White Blood Count 16.52 K/ul (4.8-10.8)
--- NOTE | 2024-02-09 08:25 | Obstetrical Progress Note ---
Date of Service February 09, 2024 Assessment & Plan (1) Encounter for care and examination after delivery: Day 1 status post primary . Doing well. Heart rate mildly elevated with normal sinus tach appreciated on EKG yesterday. Denying any chest pain or shortness of breath. Routine care. Subjective Ambulation: ambulating normally Voiding: no voiding problems Passing Gas:: Yes Diet Tolerance:: regular diet Lochia:: Moderate Feeding Type:: breast feeding Physical Exam Constitutional WD/WN, vitals as above Respiratory normal respiratory effort; no respiratory distress and no labored breathing Gastrointestinal (Abdomen) Inspection/Auscultation: abdomen normal to inspection; abdomen not distended Percussion/Palpation: abdomen soft; abdomen nontender, no guarding and abdomen not rigid Incision clean, dry and intact Genitourinary OB Exam Abdomen: + fundal height Fundus: + firm and + relation to umbilicus (Below); not tender or not boggy Results & Data Vital Signs (Past 12 Hours) Vital Signs Temp Pulse Resp BP BP Pulse Ox O2 Del Method 02/09/24 02:43 36.8 C 98 H 18 97/67 L 97 Room Air 02/08/24 23:32 18 97 02/08/24 23:26 36.9 C 99 H 18 113/74 98 Room Air 02/08/24 22:26 18 96 02/08/24 21:29 18 95 02/08/24 20:32 18 96
[2024-02-09] MEDS ORDERED: oxyCODONE HCL SOLN 5 MG/5 ML UDC PO PRN (08:49)
[2024-02-09] MEDS: IBUPROFEN 200 MG/10 ML UDC PO STA (09:01)
[2024-02-09] MEDS: IBUPROFEN 200 MG/10 ML UDC PO PRN (09:03)
[2024-02-09] MEDS: DIPHTHER/TETAN/PERTUS Vaccine (Tdap, Adol/Adult) 0.5mL IM ONE (16:11)
[2024-02-09] MEDS: bisacodyL 5 MG TABEC PO SCH (20:51)
--- NOTE | 2024-02-09 22:42 | Electrocardiogram Report ---
Test Reason : Blood Pressure : / mmHG Vent. Rate : 129 BPM Atrial Rate : 129 BPM P-R Int : 132 ms QRS Dur : 074 ms QT Int : 292 ms P-R-T Axes : 057 039 028 degrees QTc Int : 427 ms Sinus tachycardia Cannot rule out Anterior infarct , age undetermined Abnormal ECG No previous ECGs available Confirmed by Brayden Sheppard ([id number]) on 02/09/2024 10:42:07 PM Referred By: Angela Curtis Confirmed By:Brayden Sheppard
[2024-02-10 06:13] LABS: Hematocrit (blood only) 29.9 % (37.0-47.0); Hemoglobin 9.6 g/dl (12.0-16.0)
[2024-02-10] MEDS ORDERED: bisacodyL 10 MG SUPP PR PRN (06:31)
--- NOTE | 2024-02-10 06:38 | Obstetrical Progress Note ---
Date of Service February 10, 2024 Assessment & Plan (1) Encounter for care and examination after delivery: Day 2 status post primary . Doing well. Intermittent mild tachycardia with sinus tach appreciated on EKG. Denying any chest pain or shortness of breath. Routine care. Subjective Ambulation: ambulating normally Voiding: no voiding problems Passing Gas:: Yes Diet Tolerance:: regular diet Lochia:: Moderate Feeding Type:: breast feeding Physical Exam Constitutional WD/WN, vitals as above Respiratory normal respiratory effort; no respiratory distress and no labored breathing Cardiovascular Extremities: no calf tenderness Gastrointestinal (Abdomen) Inspection/Auscultation: abdomen normal to inspection; abdomen not distended Percussion/Palpation: abdomen soft; abdomen nontender, no guarding and abdomen not rigid Incision clean, dry and intact Genitourinary OB Exam Abdomen: + fundal height Fundus: + firm and + relation to umbilicus (Below); not tender or not boggy Results & Data Vital Signs (Past 12 Hours) Vital Signs Temp Pulse Pulse Resp BP Pulse Ox O2 Del Method 02/09/24 23:07 37 C 95 H 18 113/77 98 Room Air 02/09/24 19:20 37 C 125 H 18 120/83 98 Room Air
--- NOTE | 2024-02-11 13:05 | Discharge Summary ---
Date of Service February 11, 2024 Admission HPI Per Admitting Provider 23 yo G1 at 40 6/7 wga presents for iol. +FM; rare ctx, denies LOF or VB PNI: late to care Past JR. SYSTEMS ADMINISTRATOR Hx: G1 regular cycles 10/2023 neg cyto denies hx stis Discharge Data Consultations 02/06/24 16:54 Consult Anesthesiology Stat 02/08/24 04:15 Consult Anesthesiology Stat Procedures Performed Operation Date: 02/08/24 04:00 Actual Procedures p Section in LD with T-Incision superiorly for live female child at 0511 - Mayuri Schulte MD, [facility] Course (1) Encounter for care and examination after delivery: Day 2 status post primary . Doing well. Intermittent mild tachycardia with sinus tach appreciated on EKG. Denying any chest pain or shortness of breath. Routine care. Discharge Plan Discharge Items Patient Disposition: Home - Self-Care Reason For Visit: IOL Discharge Diagnosis: s/p Activity: Per Instructions section Non-emergency contact: Director Commercial Sales Call non-emergency contact if: your pain is not controlled, your pain is worsening, your temperature is above 101, your wound has increased redness, your wound has increased drainage and your wound pain has increased Follow-up/Referrals: PCP,NO [Primary Care Provider] - Diet: Regular Addtl Attending Provider Instructions: ACTIVITY RECOMMENDATIONS: * Gradual return to full activity over the next 2-3 weeks. * No lifting - nothing heavier than baby over the next 2-3 weeks. * Do not engage in vigorous exercise, sexual activity or sports until cleared by your physician. * Do not drive or operate any motorized equipment until cleared by your physician. * You may shower/bathe daily. MEDICATIONS: For discomfort or pain, you may use Acetaminophen (Tylenol), Ibuprofen (Advil), or Naproxen (Aleve) following the package directions. For constipation you may use Colace following the package directions. BREAST CARE: If you are not breast feeding: * Wear a supportive bra 24 hours a day for one to two weeks. * Avoid stimulating your breasts and nipples as much as possible during the first few weeks after delivery. * When taking a shower, have the warm water hit your back, not breasts. * When your breasts feel full, apply ice packs. Usually three to four times a day helps ease the discomfort. * Take a mild pain medication (Tylenol / Motrin) when you are uncomfortable. If breast feeding: * Use breast milk to lubricate nipples. Lansinoh cream may be used for sore nipples. You do not need to remove cream prior to breast feeding. If using a different brand of cream, check the label for directions regarding removal of cream prior to nursing. * Wear a supportive bra. * If having problems with breasts or breast feeding, call a netsuite consultant or your health care provider. SPECIAL CARE INSTRUCTIONS: When you are discharged from the hospital, it is important for you to follow the instructions listed below: * During the first week at home, you should be able to care for yourself and your baby. In addition, the usual light household activities are encouraged. * Limit your activities to the way you feel. Do not try to clean the house or move furniture. Be sensible. * If you actively engage in sports and have done so up until the time of your delivery, you may resume these activities as soon as you feel able. This may take up to one month or even longer. Use good judgment. * Continue to take your vitamins for at least six weeks after the of your baby. * Your diet need not be limited unless you were on a special diet before your delivery. Breast-feeding mothers need around 2500 calories per day and at least 64-80 ounces of fluid per day (8 to 10 glasses). * You should eat foods from the four major food groups. Crash diets or fad diets are to be avoided. Eating lean meats, fresh fruits and vegetables, low-fat dairy products, high fiber foods and a regular exercise program, will help you get back to your pre- weight without putting your health at risk. * Constipation is sometimes a problem after delivery. Take a mild laxative as needed. If breast feeding, Milk of Magnesia is acceptable to use. You may use a suppository or Fleets enema. * A daily shower or tub bath is suggested. Wash incision daily with warm soapy water and pat dry. It doesn't need to be covered unless drainage is present. * A bloody vaginal discharge will usually continue until around four weeks . A small amount of bleeding may continue for as long as six weeks. Vaginal discharge changes from the bright red bleeding after delivery to pink then brownish and finally yellowish-pink before becoming white and disappearing. * Bleeding may increase with activity. Your first period may come in 4-8 weeks. If you are breast feeding, your period may be delayed even longer. * [place] (sex) can begin whenever both you and your partner feel comfortable and do not have any form of genital infection. It is recommended that you wait at least six weeks for internal and external healing to occur. If you have questions, please talk to your health care practitioner. A condom should be used to prevent infection and . * Foreplay, gentle intercourse and lubrication is very important the first several times to prevent pain. A water-based lubricant such as K-Y jelly or Astroglide may be used. * If you have RH negative blood and your baby is RH positive, you will receive RHOGAM by injection prior to discharge. The nurse will give you a card to keep with you that has the date and place that you received RHOGAM after delivery. * During your care, you had a Rubella screen done to check for the presence of rubella antibodies in your blood. If your test was negative, you will receive a Rubella vaccine prior to discharge. This vaccine may cause a fever, soreness at the injection site and flu-like symptoms. If these symptoms persist, notify your health care practitioner. is not advised for one month after a Rubella vaccine. * Verbalizes understanding of car seat law as reviewed with patient nursing. * Car Seat hand-out given and reviewed with patient by nursing. * Shaken baby information reviewed with patient by nursing. Call you doctor if: * Heavy bleeding (saturating several pads an hour) or passing clots the size of your fist. * A fever >101 degrees F (38.3 degrees C) on two occasions four hours apart and/or chills. * Unusual pain in the pelvic or vaginal areas. * Call the doctor for any increased redness, drainage or swelling around the incision and any pain unrelieved by prescribed pain medication. * "Baby Blues" lasting longer than two weeks. If you have any questions or concerns, call your health care practitioner at . FOLLOW UP VISIT: * Please call the office at to schedule a 6 week examination. It is important you keep this appointment. It is important for you to make arrangements for either yearly or twice yearly check-ups thereafter. Pending Studies at Discharge: No Stand-Alone Forms: [employer], Smoking Cessation Medications and DC Order Prescriptions: New ibuprofen 100 mg/5 mL Suspension 600 mg PO Q6 PRN (Reason: pain) Qty: 120 1RF Continued One-A-Day -1 27 mg iron- 800 mcg-235 mg capsule 27 cap PO DAILY Discharge Orders: Discharge Order (Routine); Ordered 02/10/24 Ordered By: Mariela Montesinos/Other Patient Handouts: Depression, DVT in Admission Data Admit Date/Time: 02/06/24 16:47 Attending Provider: Angela Curtis Admit Provider: Angela Curtis Primary Care Provider: PCP,NO Other Providers: Mahamed Corrales; Janes Ansari Other Interventions: Discharge Summary Assessment (RN) Last Done: 02/10/24 14:50 Coding Level of Care Code 26855 IN/OBS DISCH 30 MIN/LESS Diagnoses Encounter for care and examination after delivery Z39.2
== END 2024-02-10 14:50 | disposition home or self-care (01) | DRG 788 ==
LOC: 4S1 02-06 16:47 → 4E2 02-08 09:39
DX: O62.1 Secondary uterine inertia; Z37.0 Single live birth; O48.0 Post-term pregnancy; O61.1 Failed instrumental induction of labor; Z3A.40 40 weeks gestation of pregnancy; O61.0 Failed medical induction of labor

== ENCOUNTER 2025-05-21 06:59 | Inpatient (IN) ==
--- NOTE | 2025-05-10 16:10 | Anesthesiology Consultation ---
Date of Service May 10, 2025 Assessment & Plan (1) Encounter for pre-operative examination: - Per data sme on 05/10/25: No known infectious disease contacts, current infectious disease symptoms in past 10 days or COVID positive test result in the past 30 days. 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 Surgery Operation Date: 05/21/25 07:30 Proposed Procedures p Section (Delivery of Baby Through Abdominal Incision), - Nasir Burns MD s With Bilateral Tubal Ligation - Nasir Burns MD Height/Weight Height: 5 ft 1 in Weight: 75.75 kg Allergies Allergy/AdvReac Type Severity Reaction Status Date / Time No Known Allergies Allergy Verified 05/10/25 15:20 Medications Home Medications Medication Instructions Recorded Confirmed Last Taken acetone (urine) test (Ketone Urine #50 ea 01/29/25 05/10/25 Unknown Test strips) blood sugar diagnostic (OneTouch #150 ea 01/29/25 05/10/25 Unknown Verio test strips) blood-glucose meter (OneTouch #1 ea 01/29/25 05/10/25 Unknown Verio Reflect Meter) lancets 33 gauge (OneTouch Delica #150 ea 01/29/25 05/10/25 Unknown Plus Lancet) pen needle, diabetic 32 gauge x #100 ea 02/17/25 05/10/25 Unknown " insulin NPH isoph U-100 human 100 25 unit subcut QPM 03/17/25 05/10/25 03/16/25 21:00 unit/mL (3 mL) subcutaneous pen (Novolin N FlexPen) Accu-Chek Guide Me Glucose Mtr #1 ea 05/06/25 05/10/25 Unknown (blood-glucose meter) Accu-Chek Guide test strips (blood #150 ea 05/06/25 05/10/25 Unknown sugar diagnostic) lancets (Accu-Chek Fastclix Lancet #200 ea 05/06/25 05/10/25 Unknown Drum) vits no.133-ferrous 1 tab PO HS 05/10/25 05/10/25 Unknown fumarate 28 mg-folic acid 800 mcg tablet () Past Medical History Medical History (Updated 05/10/25 @ 16:08 by Joie Mccallum PA-C) Gestational diabetes IDDM Intermittent palpitations noted prior to her & was following with PCP and cardiology, holter monitor for ~1 month, never heard back and "assumed it was okay", states she has not had any recent issues since the . Past Family History Family History Grandmother (Maternal) Colorectal cancer Grandfather (Maternal) Colorectal cancer Other No family history of adverse response to anesthesia Denies family history of Ovarian cancer Breast cancer Past Surgical History Surgical History H/O section Social History Smoking Status: Never smoker Do You Dip or Chew Tobacco: No Hx Alcohol Use: No Hx Substance Use: No substance use type: does not use Lab Results Anesthesia Preop Results Results Anesthesia Widget: Hgb 12.8 g/dl (12.0-16.0) 03/30/25 Hct 38.8 % (37.0-47.0) 03/30/25 Urine Color Yellow 03/30/25 Urine Appearance Clear (Clear) 03/30/25 Urine pH 7.0 (4.5-7.5) 03/30/25 Urine Specific [place] 1.009 (1.000-1.030) 03/30/25 Urine Protein Negative (Negative) 03/30/25 Urine Glucose (UA) Negative (Negative) 03/30/25 Urine Ketones Negative (Negative) 03/30/25 Urine Blood Negative (Negative) 03/30/25 Urine Nitrite Negative (Negative) 03/30/25 Urine Bilirubin Negative (Negative) 03/30/25 Urine Urobilinogen Negative (Negative) 03/30/25 Urine Leukocyte Esterase 2+ (Negative) H 03/30/25 Urine WBC (Auto) 0-5 /hpf (0-5) 03/30/25 Urine RBC (Auto) 0-2 /hpf (0-2) 03/30/25 Urine Hyaline Casts (Auto) 0-2 /lpf (0-2) 03/30/25 Urine Epithelial Cells (Auto) 11-20 /hpf (0-2) H 03/30/25 Urine Bacteria (Auto) 1+ (None Seen) H 03/30/25 Testing Other Testing Cardiac event monitor 10/16/24 Sinus rhythm with average HR 84 bpm (51-169 bpm) PACs and PVCs 197 patient triggered events (skipped beat). Symptoms occasionally correlated with isolated PVCs, and otherwise during normal sinus rhythm and mild sinus tachycardia without ectopy
[2025-05-21] MEDS ORDERED: SODIUM CHLORIDE 0.9% 100 ML IV PRN (07:14)
[2025-05-21 07:37] LABS: Hematocrit (blood only) 40.3 % (37.0-47.0); Hemoglobin 13.0 g/dl (12.0-16.0); Mean Corpuscular Hemoglobin 27.2 pg (25.0-34.0); Mean Corpuscular Volume 84.3 fL (80.0-100.0); Platelet Count 216 K/uL (130-400); RDW Standard Deviation 43.4 fL (36.4-46.3); Red Blood Count 4.78 M/uL (4.20-5.40); White Blood Count 12.32 K/ul (4.8-10.8)
[2025-05-21] MEDS ORDERED: OXYTOCIN 10 UNITS/ML VIAL ONE ×3 (08:36→15:33)
[2025-05-21] MEDS ORDERED: ONDANSETRON INJ 2 MG/ML 2 ML VIAL ONE (08:36)
[2025-05-21] MEDS ORDERED: GLYCOPYRROLATE 0.2 MG/ML VIAL ONE (08:36)
[2025-05-21] MEDS ORDERED: MoRPHine SULFATE PF 1 MG/ML 10 ML AMP/VIAL ONE (08:36)
[2025-05-21] MEDS ORDERED: DEXAMETHASONE SOD INJ 4 MG/ML VIAL ONE (08:36)
[2025-05-21] MEDS: ACETAMINOPHEN 500 MG TAB PO SCH (08:53)
[2025-05-21] MEDS: LACTATED RINGER'S 1,000 ML IV SCH ×2 (08:53→09:24)
--- NOTE | 2025-05-21 09:52 | History & Physical Report ---
Date of Service May 21, 2025 Assessment & Plan (1) Insulin controlled gestational diabetes mellitus (GDM) during : Plan: Theresa is a 24-year-old G2, P1 currently at 36 weeks 1 day gestational age presents for repeat section with bilateral tubal ligation with a prior section complicated by a T-incision on the uterus. Anterior placenta noted on the scan. Type and cross 1 unit due to potential increased risk for bleeding with this presentation. Vitals within normal limit. NST reactive. (2) Previous delivery affecting : Admission and Anticipated Discharge Date Admission Date: May 21, 2025 History of Present Illness Primary Care Provider: Saurabh Zuniga III, CHET Theresa is a 24-year-old G2, P1 currently at 36 weeks 1-day gestational age presents for scheduled repeat section with bilateral tubal ligation. Patient has a history of 1 prior with a T-incision on the uterus. Anterior placenta noted on anatomy scan. otherwise complicated by insulin-dependent gestational diabetes. OB Labs: Blood Type A Positive 11/23/24 Antibody Screen NEGATIVE 11/23/24 Hgb 12.8 g/dl (12.0-16.0) 03/30/25 Hct 38.8 % (37.0-47.0) 03/30/25 MCV 82.4 fL (80.0-100.0) 11/23/24 Plt Count 328 K/uL (130-400) 11/23/24 Rubella IgG Antibody Immune (Immune) 11/23/24 RPR Nonreactive (Nonreactive) 11/01/23 Treponema pallidum Ab Negative (Negative) 03/30/25 Hep Bs Antigen Negative (Negative) 11/23/24 Hep Bs Antigen NON-REACTIVE (NON-REACTIVE) 11/01/23 Hepatitis C Antibody Negative (Negative) 11/23/24 Hepatitis C Ab (EIA) NON-REACTIVE (NON-REACTIVE) 11/01/23 HIV 1&2 Ab/P24 Ag 4thGn Negative (Negative) 11/23/24 HIV (1&2) Ag & Ab Conf NON-REACTIVE (NON-REACTIVE) 11/01/23 Glucose 1 Hr 50 gm 134 mg/dl (70-130) H 01/04/25 OB Optional Labs: Chlamydia trachomatis RNA Not Detected (NotDetected) 11/23/24 Neisseria gonorrhoeae RNA Not Detected (NotDetected) 11/23/24 Thyroid Stimulating Hormone (TSH) 1.456 uIu/ml (0.300-4.500) 09/17/24 Labs Reviewed: Declines genetics--mln Allergies Allergy/AdvReac Type Severity Reaction Status Date / Time No Known Allergies Allergy Verified 05/20/25 13:18 Home Medications Medication Instructions Recorded Confirmed Type acetone (urine) test (Ketone Urine #50 ea 01/29/25 05/20/25 Rx Test strips) blood sugar diagnostic (OneTouch #150 ea 01/29/25 05/20/25 Rx Verio test strips) blood-glucose meter (OneTouch #1 ea 01/29/25 05/20/25 Rx Verio Reflect Meter) lancets 33 gauge (OneTouch Delica #150 ea 01/29/25 05/20/25 Rx Plus Lancet) pen needle, diabetic 32 gauge x #100 ea 02/17/25 05/20/25 Rx 5/32" insulin NPH isoph U-100 human 100 34 unit subcut QPM 03/17/25 05/21/25 History unit/mL (3 mL) subcutaneous pen (Novolin N FlexPen) Accu-Chek Guide Me Glucose Mtr #1 ea 05/06/25 05/20/25 Rx (blood-glucose meter) Accu-Chek Guide test strips (blood #150 ea 05/06/25 05/20/25 Rx sugar diagnostic) lancets (Accu-Chek Fastclix Lancet #200 ea 05/06/25 05/20/25 Rx Drum) vits no.133-ferrous 1 tab PO HS 05/10/25 05/21/25 History fumarate 28 mg-folic acid 800 mcg tablet () Patient History Medical History Gestational diabetes IDDM Intermittent palpitations noted prior to her & was following with PCP and cardiology, holter monitor for ~1 month, never heard back and "assumed it was okay", states she has not had any recent issues since the . Surgical History H/O section Family History (Updated 05/21/25 @ 07:42 by Libby Benton RN) Grandmother (Maternal) Colorectal cancer Grandfather (Maternal) Colorectal cancer Father Diabetes Aunt Diabetes Other No family history of adverse response to anesthesia Denies family history of Ovarian cancer Breast cancer Social History (Updated 05/17/25 @ 14:43 by Bettye Liz RN) Smoking Status: Never smoker Second Hand Exposure: No; Do You Dip or Chew Tobacco: No; Tobacco Cessation Education Requested by Patient: No Hx Alcohol Use: No Hx Substance Use: No Preferred Language: Georgian Communication Ability: Effective Oxygen Furnace Operator Required: No Beliefs That Will Affect Care: None marital status: marital status details: Christopher Vanegas (24) [phone] Current Living Situation: Spouse and Family Current Living Situation Comment: lives with spouse and child, no pets current occupational status: unemployed current occupation: Homemaker How many Children do You have: 1 Other Information That Helps Us Care for You: No Safety Concerns: Feels Safe At This Time Childhood Exposure to Second-Hand Smoke: No Diet: regular caffeine: Yes Dental Care, Regularly: No Physical Activity Frequency: Daily Seatbelt Use: always Sunscreen Use: Yes Assistive Devices: None Physical Exam Genitourinary: OB Exam Monitor Tracing: + external FHT monitor used, + external uterine monitor used, + category I and + normal FHT variability Results & Data Vital Signs (Past 12 Hours) Vital Signs Temp Pulse Resp BP 05/21/25 07:23 36.9 C 81 18 111/65 Coding Level of Care Code None Diagnoses Insulin controlled gestational diabetes mellitus (GDM) in third trimester O24.414 Trimester: third trimester Previous delivery affecting O34.219 (1) Insulin controlled gestational diabetes mellitus (GDM) during Trimester: third trimester Qualified Code(s): O24.414 - Gestational diabetes mellitus in , insulin controlled
[2025-05-21] MEDS: CITRIC ACID/SODIUM CITRATE 15 ML UDC PO SCH (10:02)
[2025-05-21] MEDS ORDERED: NALOXONE HCL 1 MG in SODIUM CHLORIDE 0.9% 1,000 ML IV PRN (15:06)
[2025-05-21] MEDS ORDERED: HYDROmorphone INJ 0.5 MG/0.5 ML SYR IV PRN ×2 (15:06→17:10)
[2025-05-21] MEDS ORDERED: DROPERIDOL 5 MG/2 ML VIAL IV PRN (15:06)
[2025-05-21] MEDS ORDERED: diphenhydrAMINE 50 MG/ML VIAL IV PRN (15:06)
[2025-05-21] MEDS ORDERED: NALOXONE HCL 0.4 MG/1 ML VIAL/CARP IV PRN (15:06)
[2025-05-21] MEDS ORDERED: NALBUPHINE HCL INJ 10 MG/ML AMP IV PRN (15:06)
[2025-05-21] MEDS ORDERED: NALOXONE HCL 0.08 MG in SYRINGE 1.8 ML IV PRN (15:06)
[2025-05-21] MEDS ORDERED: MoRPHine SULFATE PF 1 MG/ML 10 ML AMP/VIAL INT SPINAL ONE (15:06)
[2025-05-21] MEDS ORDERED: LACTATED RINGER'S 500 ML IV PRN (15:06)
[2025-05-21] MEDS ORDERED: METOCLOPRAMIDE HCL 20 MG in SODIUM CHLORIDE 0.9% 50 ML IV PRN (15:06)
[2025-05-21] MEDS ORDERED: MEPERIDINE HCL 25 MG/ML CARP/VIAL IV PRN (15:06)
[2025-05-21] MEDS ORDERED: NO NARCOTICS OR SEDATIVES SCH (15:15)
[2025-05-21] MEDS ORDERED: SODIUM CHLORIDE 0.9% 1,000 ML IV SCH (15:15)
[2025-05-21] MEDS ORDERED: DC INTRASPINAL MORPHINE SCH (15:15)
--- NOTE | 2025-05-21 16:13 | Operative Report ---
Post Operative Report Pre & Post Diagnosis Operation Date: 05/21/25 09:00 Pre-Op Diagnosis: Repeat section x2 with a tubal ligation Post-Op Diagnosis: Repeat section x2 with a tubal ligation I identified the patient and participated in the time-out.: Yes Procedure Operation Date: 05/21/25 09:00 Actual Procedures p Repeat Section(Bilateral) - Nasir Burns MD s with Bilateral Tubal Ligation(Bilateral) - Nasir Burns MD Surgeon Nasir Burns MD Equal Opportunity Officer Dr. Vega Quantitative Blood Loss (QBL) See chart Findings Consistent with Post-Op Diagnosis Specimens Placenta and bilateral fallopian tubes Description of Procedure Patient was taken to the operating room after consents were ensured. Upon presentation she was identified. Anesthesia obtained and patient was prepped and draped in the normal sterile fashion. Preprocedure timeout was performed and the case was initiated. A Pfannenstiel incision was made with a knife. This was carried down to underlying fascia with the Bovie and blunt dissection. Fascia was nicked at the midline with a knife and was extended bluntly and with Becerra scissors bilaterally. The superior aspect of the fascia was grasped with Marshall's x 2 and elevated off the rectus muscles using blunt dissection and Becerra scissors. Inferior aspect of the fascia was then grasped with Dahlia's x 2 and elevated off the underlying rectus muscles using blunt dissection and Becerra scissors. There is noted to be a anterior uterine adhesion to the anterior abdominal wall in the lower uterine segment. This was reduced with Bovie and blunt dissection. Abdomen was then entered bluntly and placed on stretch to provide adequate room for delivery. was noted to be in cephalic presentation presentation and a low transverse uterine incision was made with a knife. The uterine cavity was then entered bluntly and placed on stretch to provide adequate room for delivery. The was noted to be in cephalic position and head delivered without difficulty quickly followed by shoulders and body. did not have good tone upon delivery and the cord was clamped and cut and taken to the waiting nursery staff. Cord blood and cord segment obtained and attention turned to deliver the placenta which delivered intact with gentle uterine massage and cord traction. Uterus was exteriorized and several passes made to remove any remaining membranes with a dry lap. Uterus was wrapped in a wet lap and the hysterotomy was reapproximated with 0 Vicryl in continuous running lock stitch. A second imbricating layer was then performed. There is noted to be oozing from the uterus at the bed of the reduced adhesions and hemostasis achieved with continuous running locked suture. Confirmed with Theresa that she went want to complete the tubal ligation which she confirmed verbally. The right fallopian tube was grasped with pickups and the LigaSure device was used to serially cauterized and dissect the tube from the mesosalpinx. The procedure was then repeated on the left fallopian tube and hemostasis confirmed from both tubal ligation sites. The posterior cul-de-sac cleaned of clots and debris's. Hysterotomy was also noted to be hemostatic. Uterus returned to maternal abdomen and right left paracolic gutters cleaned of clots and debris's and hysterotomy reinspected. The muscle, fascia and subcutaneous layers were inspected and noted to be hemostatic. Fascia was reapproximated with 0 Vicryl in continuous running stitch. Subcutaneous layer reapproximated in 2 layers with 2-0 plain. Skin reapproximated 3-0 Vicryl in a subcuticular stitch. Dermabond placed on top. Needle sponge in instrument counts correct at the completion of the case. Both mother and stable in the immediate postdelivery timeframe. No complications noted and blood loss per QBL in chart. I attest to the content of the Intraoperative Record and any orders documented therein. Any exceptions are noted below. OB Procedure Charges [id number] Add on Tubal for C/S
--- NOTE | 2025-05-21 16:18 | Anesthesiology Progress Note ---
Date of Service May 21, 2025 Anesthesia Post Procedure Vital Signs Vital Signs: Temp Pulse Resp BP Pulse Ox 05/21/25 16:14 86 98 05/21/25 16:09 88 97 05/21/25 16:04 84 99 05/21/25 14:40 18 05/21/25 14:40 37.0 C 18 05/21/25 14:39 96 H 112/59 L 05/21/25 11:30 93 H 114/61 05/21/25 11:15 16 05/21/25 11:15 16 05/21/25 10:45 18 05/21/25 10:45 18 05/21/25 09:45 18 05/21/25 09:45 18 05/21/25 09:15 18 05/21/25 09:15 18 05/21/25 07:23 36.9 C 81 18 111/65 Transfer of Care Handoff Completed per policy Notes Mental Status: alert / awake / arousable Patient Amnestic to Procedure: Yes Nausea / Vomiting: adequately controlled Pain: adequately controlled Airway Patency, RR, SpO2: stable & adequate BP & HR: stable & adequate Hydration State: stable & adequate Neuraxial Anesthesia: was administered and sensory block is resolving Anesthetic Complications: no major complications apparent and Pt Satisfied with anesthetic care
[2025-05-21] MEDS ORDERED: SENNA 8.6 MG TAB PO PRN (17:10)
[2025-05-21] MEDS ORDERED: MAGNESIUM HYDROXIDE SUSP 30 ML UDC PO PRN (17:10)
[2025-05-21] MEDS ORDERED: HYDROCORTISONE ACETATE 25 MG SUPP PR PRN (17:10)
[2025-05-21] MEDS ORDERED: BENZOCAINE 20% SPRY 85 APPLN/85 GM CAN EXT PRN (17:10)
[2025-05-21] MEDS ORDERED: CALCIUM CARBONATE 500 MG CHEWABLE TAB PO PRN (17:10)
[2025-05-21] MEDS ORDERED: DIPHTHER/TETAN/PERTUS Vaccine (Tdap, Adol/Adult) 0.5mL IM ONE (17:10)
[2025-05-21] MEDS ORDERED: LACTATED RINGER'S 1,000 ML IV SCH (17:15)
[2025-05-21] MEDS: KETOROLAC 30 MG/ML VIAL IV SCH (17:57)
[2025-05-21] MEDS: ONDANSETRON INJ 2 MG/ML 2 ML VIAL IV PRN (17:57)
[2025-05-21] MEDS: SIMETHICONE 80 MG CHEW PO SCH (20:14)
[2025-05-21] MEDS: DOCUSATE SODIUM 100 MG CAP PO SCH (20:14)
[2025-05-21] MEDS: OXYTOCIN 20 UNITS/LR 1,002 ML IV SCH (20:21)
[2025-05-21] MEDS: ACETAMINOPHEN 325 MG TAB PO SCH (23:28)
--- NOTE | 2025-05-22 06:01 | Obstetrical Progress Note ---
Date of Service May 22, 2025 Assessment & Plan (1) care and examination: Plan: Patient is post status post day 1. Patient is currently stable. Will continue to monitor. Will either discharge tomorrow of the day after. Admission and Anticipated Discharge Date Admission Date: May 21, 2025 Supervising Physician Co-Signing Physician Notes Patient seen with resident and agree with the above findings and plan. Continue routine care Subjective 24 yo post- day 1 s/p [] Ambulation: ambulating normally Voiding: no voiding problems Passing Gas:: No Diet Tolerance:: Had crackers last night and was nauseous after. Feeding Type:: Bottle feeding Current Pain Level:3-4/10 pain incision pain. Resting comfortably this AM in NAD. Denies fevers/chills, CLAROS, CP/palp, SOB/cough/wheezing, V, LE pain, breast pain/dschrg, UTI Sx. Review of Systems Review of Systems: as per subjective HPI Physical Exam Constitutional: WD/WN, vitals as above Respiratory: normal respiratory effort, lungs clear to auscultation Cardiovascular: Rate/Rhythm: regular rate and regular rhythm Heart Sounds: normal S1 and normal S2; no murmur Extremities: + edema (trace); no calf tenderness Gastrointestinal (Abdomen): Percussion/Palpation: + abdomen tender (LLQ and RLQ) and abdomen soft Skin: no rashes, warm and dry Psychiatric: Eye Contact: good eye contact Speech: normal rate/rhythm/volume of speech Thought Process: linear/logical thought process Genitourinary: uterus was firm and @ level of umbilicus. Incision was C/D/I Results & Data Vital Signs (Past 12 Hours) Vital Signs Temp Pulse Pulse Resp BP BP Pulse Ox 05/22/25 04:56 18 96 05/22/25 04:20 36.6 C 68 16 99/60 L 97 05/22/25 04:00 16 96 05/22/25 03:00 16 95 05/22/25 02:08 16 97 05/22/25 00:58 16 95 05/22/25 00:02 18 97 05/21/25 23:40 36.4 C L 68 18 107/64 97 05/21/25 23:00 18 96 05/21/25 22:02 16 96 05/21/25 21:00 18 97 05/21/25 20:00 18 96 05/21/25 20:00 36.6 C 64 18 100/62 96 05/21/25 19:01 67 97 05/21/25 18:56 65 97 05/21/25 18:51 69 97 05/21/25 18:47 64 94 05/21/25 18:46 60 95 05/21/25 18:41 98 05/21/25 18:41 65 05/21/25 18:41 61 105/57 L 05/21/25 18:36 88 97 05/21/25 18:33 80 94 05/21/25 18:31 71 105/62 95 05/21/25 18:27 66 94 05/21/25 18:26 74 97 05/21/25 18:21 95 05/21/25 18:21 67 05/21/25 18:21 61 104/62 94 05/21/25 18:16 65 94 05/21/25 18:15 75 94 05/21/25 18:11 36.8 C 18 05/21/25 18:11 94 05/21/25 18:11 69 05/21/25 18:11 85 107/61 05/21/25 18:09 66 94 05/21/25 18:06 63 96 05/21/25 18:01 101 H 116/60 96 O2 Del Method 05/22/25 04:56 05/22/25 04:20 Room Air 05/22/25 04:00 05/22/25 03:00 05/22/25 02:08 05/22/25 00:58 05/22/25 00:02 05/21/25 23:40 Room Air 05/21/25 23:00 05/21/25 22:02 05/21/25 21:00 05/21/25 20:00 05/21/25 20:00 Room Air 05/21/25 19:01 05/21/25 18:56 05/21/25 18:51 05/21/25 18:47 05/21/25 18:46 05/21/25 18:41 05/21/25 18:41 05/21/25 18:41 05/21/25 18:36 05/21/25 18:33 05/21/25 18:31 05/21/25 18:27 05/21/25 18:26 05/21/25 18:21 05/21/25 18:21 05/21/25 18:21 05/21/25 18:16 05/21/25 18:15 05/21/25 18:11 05/21/25 18:11 05/21/25 18:11 05/21/25 18:11 05/21/25 18:09 05/21/25 18:06 05/21/25 18:01 Laboratory Results Lab Results 05/21/25 05/21/25 05/21/25 Range/Units 07:07 07:11 08:57 WBC 12.32 H (4.8-10.8) K/ul RBC 4.78 (4.20-5.40) M/uL Hgb 13.0 (12.0-16.0) g/dl Hct 40.3 (37.0-47.0) % MCV 84.3 (80.0-100.0) fL MCH 27.2 (25.0-34.0) pg MCHC 32.3 (32.0-36.0) g/dL RDW Std Deviation 43.4 (36.4-46.3) fL RDW Coeff of Tiki 14.1 (11.5-14.5) % Plt Count 216 (130-400) K/uL MPV 9.7 (9.4-12.4) fL POC Glucose 91 (70-99) mg/dl Treponema pallidum Ab Negative (Negative) Blood Type A Positive Antibody Screen NEGATIVE Crossmatch See Detail 05/21/25 Range/Units 14:46 WBC (4.8-10.8) K/ul RBC (4.20-5.40) M/uL Hgb (12.0-16.0) g/dl Hct (37.0-47.0) % MCV (80.0-100.0) fL MCH (25.0-34.0) pg MCHC (32.0-36.0) g/dL RDW Std Deviation (36.4-46.3) fL RDW Coeff of Tiki (11.5-14.5) % Plt Count (130-400) K/uL MPV (9.4-12.4) fL POC Glucose 81 (70-99) mg/dl Treponema pallidum Ab (Negative) Blood Type Antibody Screen Crossmatch
[2025-05-22 06:51] LABS: Hematocrit (blood only) 38.2 % (37.0-47.0); Hemoglobin 12.8 g/dl (12.0-16.0)
[2025-05-22] MEDS: FERROUS SULFATE 325 MG TAB PO SCH (08:27)
[2025-05-22] MEDS: PRENATAL VITAMIN 1 TAB PO SCH (08:27)
[2025-05-22] MEDS ORDERED: diphenhydrAMINE Capsule 25 MG CAP PO PRN (09:06)
[2025-05-22] MEDS ORDERED: diphenhydrAMINE 50 MG/ML VIAL IV PRN (09:06)
[2025-05-22] MEDS ORDERED: ONDANSETRON INJ 2 MG/ML 2 ML VIAL IV PRN (09:06)
[2025-05-22] MEDS ORDERED: PROMETHAZINE 12.5 MG/50.5 ML BAG IV PRN (09:06)
[2025-05-22 15:51] VITALS: O2SAT 97
[2025-05-22] MEDS ORDERED: KETOROLAC 30 MG/ML VIAL IV PRN (17:10)
[2025-05-22] MEDS: IBUPROFEN 600 MG TAB PO SCH (17:18)
[2025-05-22 20:04] VITALS: RESP 16
--- NOTE | 2025-05-23 07:47 | Obstetrical Progress Note ---
Date of Service May 23, 2025 Assessment & Plan (1) care and examination: All questions were answered incision was inspected and found to be clean dry and intact extremity exam was negative for tenderness patient has no significant depressive symptoms Postoperative from section patient meets discharge criteria as she is ambulating well tolerating an oral diet has minimal bleeding and no extremity pain. Discharge instructions were reviewed and prescriptions were sent to her pharmacy of choice patient advised to call with any concerns and follow-up in the office discussed. Subjective Ambulation: ambulating normally Voiding: no voiding problems Passing Gas:: Yes Diet Tolerance:: regular diet Lochia:: Small Physical Exam Constitutional WD/WN, vitals as above well developed and well nourished Respiratory normal respiratory effort, lungs clear to auscultation normal respiratory effort Cardiovascular RRR, no murmur, no edema Gastrointestinal (Abdomen) normal bowel sounds, soft, nontender, no hepatosplenomegaly Results & Data Vital Signs (Past 12 Hours) Vital Signs Temp Pulse Resp BP Pulse Ox O2 Del Method 05/22/25 23:05 97.7 F 72 16 90/60 L 97 Room Air
[2025-05-23 09:11] VITALS: BP 102/66; PULSE 71; TEMP 98.1
[2025-05-23] MEDS ORDERED: IBUPROFEN 600 MG TAB PO PRN (17:10)
[2025-05-23] MEDS ORDERED: ACETAMINOPHEN 325 MG TAB PO PRN (23:10)
--- NOTE | 2025-05-31 16:04 | Discharge Summary ---
Date of Service May 31, 2025 Admission HPI Per Admitting Provider Theresa is a 24-year-old G2, P1 currently at 36 weeks 1-day gestational age presents for scheduled repeat section with bilateral tubal ligation. Patient has a history of 1 prior with a T-incision on the uterus. Anterior placenta noted on anatomy scan. otherwise complicated by insulin-dependent gestational diabetes. OB Labs: Blood Type A Positive 11/23/24 Antibody Screen NEGATIVE 11/23/24 Hgb 12.8 g/dl (12.0-16.0) 03/30/25 Hct 38.8 % (37.0-47.0) 03/30/25 MCV 82.4 fL (80.0-100.0) 11/23/24 Plt Count 328 K/uL (130-400) 11/23/24 Rubella IgG Antibody Immune (Immune) 11/23/24 RPR Nonreactive (Nonreactive) 11/01/23 Treponema pallidum Ab Negative (Negative) 03/30/25 Hep Bs Antigen Negative (Negative) 11/23/24 Hep Bs Antigen NON-REACTIVE (NON-REACTIVE) 11/01/23 Hepatitis C Antibody Negative (Negative) 11/23/24 Hepatitis C Ab (EIA) NON-REACTIVE (NON-REACTIVE) 11/01/23 HIV 1&2 Ab/P24 Ag 4thGn Negative (Negative) 11/23/24 HIV (1&2) Ag & Ab Conf NON-REACTIVE (NON-REACTIVE) 11/01/23 Glucose 1 Hr 50 gm 134 mg/dl (70-130) H 01/04/25 OB Optional Labs: Chlamydia trachomatis RNA Not Detected (NotDetected) 11/23/24 Neisseria gonorrhoeae RNA Not Detected (NotDetected) 11/23/24 Thyroid Stimulating Hormone (TSH) 1.456 uIu/ml (0.300-4.500) 09/17/24 Labs Reviewed: Declines genetics--mln Discharge Data Consultations 05/21/25 07:03 Consult Anesthesiology Stat Procedures Performed Operation Date: 05/21/25 09:00 Actual Procedures p Repeat Section(Bilateral) - Nasir Burns MD s with Bilateral Tubal Ligation(Bilateral) - Nasir Burns MD Hospital Course (1) care and examination: Patient underwent a scheduled repeat section with tubal ligation. Procedure for without complication. Recovered well post operatively was discharged home in stable condition with both written and verbal discharge instructions Coding Level of Care Code None Diagnoses care and examination Z39.2
== END 2025-05-23 14:45 | disposition home or self-care (01) | DRG 785 ==
LOC: 4S1 06:59 → EDSTATUS 07:30 → 4E2 19:19
PROC: M.PPTLD (2025-05-21 09:00)